=== PATIENT | male | born 1935 | race Caucasian/White ===

== ENCOUNTER 2020-01-05 10:44 | Day surgery (SDC) | payer MEDICARE ==
[2020-01-02 10:18] VITALS: BMI 21.7
[~2020-01-05 10:44] MED LIST: Bupivacaine PF 0.75% SDV 10 ML ONE; EPHEDRINE 25 MG/5 ML SYRINGE ONE; Enoxaparin Sodium 30 MG/0.3 ML SYRINGE ONE; Fluorouracil 100 MG, Enoxaparin Sodium 25 MG, EPINEPHrine 0.3 MG in Ophthalmic Irrigati... IRR SCH; Lidocaine 1% PF 5 ML VIAL ONE; Lidocaine 4% PF 5 ML AMP ONE; Maxitrol 0.1% Opth Oint 3.5 GM TUBE ONE; Ondansetron PF 4 MG/2 ML Vial ONE; PROPOFOL 200 MG/20 ML VIAL ONE; Triamcinolone 40 MG/ML VIAL ONE
[2020-01-05] MEDS ORDERED: Phenylephrine 2.5% Ophth Soln 5 ML BOT ONE (11:28)
[2020-01-05] MEDS ORDERED: Cyclopentolate 1% Opth Drop 2 ML BOT ONE (11:28)
[2020-01-05] MEDS ORDERED: Fentanyl 100 MCG/2 ML VIAL ONE (13:23)
--- NOTE | 2020-01-06 15:27 | OP ---
DATE OF PROCEDURE: 01/05/2020 PREOPERATIVE DIAGNOSES: Rhegmatogenous and tractional retinal detachment, right eye. POSTOPERATIVE DIAGNOSES: Rhegmatogenous and tractional retinal detachment, right eye. PROCEDURES PERFORMED: Pars plana vitrectomy and retinal detachment repair, complex, right eye. ANESTHESIA: General endotracheal anesthesia. DESCRIPTION OF PROCEDURE: The patient was identified in the preoperative holding area. Appropriate informed consent for the planned surgical procedure on the right eye had been obtained. The patient was transported to the operative suite. Appropriate cardiopulmonary monitoring was established. General endotracheal anesthesia was initiated. Retrobulbar block was placed. The patient was prepped and draped in usual sterile manner for ophthalmic surgery on the right eye. Lid speculum was placed in the right eye. A 5-gauge trocar was placed in the conjunctiva and sclera superotemporally, inferotemporally, and superonasally. Infusion line was placed inferotemporally. Light pipe and vitreous cutter were inserted into the eye. Core vitrectomy was performed. Retina was inspected 360 degrees and the vitreous was removed from the retinal surface. Drained retinotomy was created superior to the nerve and a complete air-fluid exchange was performed. 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 A superotemporal retinectomy was performed until the entire retina laid flat. 360 laser was placed using Endolaser delivery device, and silicone oil was infused into the eye. Pressure was checked at the end of the case and was determined to be normal. Sclerotomy was sutured with 7-0 Vicryl suture. Retrobulbar Kenalog and subconjunctival Ancef were placed. Antibiotic ointment was placed. The eye was patched and shielded. The patient was taken to postop recovery unit in good condition having suffered no immediate perioperative complications. The patient was instructed to keep patch and shield on, position right side down. Followup appointment with Dr. Acuña. Job ID: [id number]
== END 2020-01-05 17:20 | disposition home or self-care (01) ==
LOC: SDC 10:44
PROVIDERS: ATTEND Ophthalmology Retina Specialist
PROC: 08T43ZZ Resection of Right Vitreous, Percutaneous Approach (ICD-10-PCS; principal; 2020-01-05)
DX: H33.41 Traction detachment of retina, right eye (principal); I10 Essential (primary) hypertension; E78.5 Hyperlipidemia, unspecified; Z79.02 Long term (current) use of antithrombotics/antiplatelets; Z79.899 Other long term (current) drug therapy; Z88.0 Allergy status to penicillin; Z88.6 Allergy status to analgesic agent; Z91.018 Allergy to other foods
CPT/HCPCS: 67108; C1814; J0171; J1650; J2001; J2405; J2704; J3010; J3301; J3490; J9190